=== PATIENT | female | born 2000 | race Caucasian/White ===

== ENCOUNTER 2023-04-22 11:36 | Emergency (ER) | payer BC ==
[2023-04-22] MEDS ORDERED: Ketorolac Tromethamine 30 MG/ML VIAL ONE (13:54)
[2023-04-22] MEDS ORDERED: Orphenadrine Citrate 60 MG/2 ML VIAL ONE (13:54)
== END 2023-04-22 15:52 | disposition home or self-care (01) ==
LOC: CSHERS 11:36
DX: M25.512 Pain in left shoulder (principal); F17.290 Nicotine dependence, other tobacco product, uncomplicated
CPT/HCPCS: 93005; 96372; J1885; J2360